=== PATIENT | male | born 1965 | race Caucasian/White ===

== ENCOUNTER 2017-07-17 21:40 | Emergency (ER) | payer OTHER ==
[2017-07-17 21:54] VITALS: BP 156/95; PULSE 86; RESP 20; TEMP 97.2; O2SAT 95
[2017-07-17] MEDS ORDERED: METO50TA PO (22:51)
--- NOTE | 2017-07-17 23:25 | PD ---
HPI Chief Complaint: Dizziness Time Seen by Provider: 23:20 Travel History International Travel<30 days: No Contact w/Intl Traveler<30days: No Traveled to known affect area: No History of Present Illness HPI The patient is a 51-year-old male who for the last 3-4 hours has had vertigo, bilateral frontal/temporal headache of gradual onset, nausea. The patient states when he moves the nausea gets worse in the dizziness gets worse. He is never had this before. He does not have any focal weakness or sensory loss but may have a minimally poor control of the finger-nose test on the left side, he was performing this at home himself. PFSH Past Medical History Patient Takes Glucophage: No Hypertension: Yes Tetanus Vaccination: < 5 Years Influenza Vaccination: Yes ?: Not Past Surgical History Cholecystectomy: Yes (2017) Tonsillectomy: Yes Social History Alcohol Use: No Tobacco Use: No Substance Use: No Allergies-Medications (Allergen,Severity, Reaction): Coded Allergies: No Known Drug Allergies (Verified Allergy, Unknown, 07/17/17) Reported Meds & Prescriptions Reported Meds & Active Scripts Active K-Tab (Potassium Chloride) 20 Meq Tab 20 Meq PO DAILY Reported Metoprolol Tartrate 50 Mg Tab 50 Mg PO DAILY Review of Systems Except as stated in HPI: all other systems reviewed are Neg Physical Exam Narrative GENERAL: The patient is alert, anxious, oriented 3 in minimal apparent distress with his vertigo. His vital signs show blood pressure 156/95 but otherwise normal. SKIN: Focused skin assessment warm/dry. HEAD: Atraumatic. Normocephalic. EYES: Pupils equal and round. No scleral icterus. No injection or drainage. ENT: No nasal bleeding or discharge. Mucous membranes pink and moist. NECK: Trachea midline. No JVD. CARDIOVASCULAR: Regular rate and rhythm. No murmur appreciated. RESPIRATORY: No accessory muscle use. Clear to auscultation. Breath sounds equal bilaterally. GASTROINTESTINAL: Abdomen soft, non-tender, nondistended. Hepatic and splenic margins not palpable. MUSCULOSKELETAL: No obvious deformities. No clubbing. No cyanosis. No edema. NEUROLOGICAL: Awake and alert. No obvious cranial nerve deficits. Motor grossly within normal limits. Normal speech. Finger to nose test is minimally more difficult on the left side than it is on the right side for this patient. PSYCHIATRIC: Appropriate mood and affect; insight and judgment normal. Data Data Last Documented VS Vital Signs Date Time Temp Pulse Resp B/P (MAP) Pulse Ox O2 Delivery O2 Flow Rate FiO2 07/18/17 01:19 98.4 74 15 159/98 (118) 98 07/17/17 23:34 Room Air Orders Orders Ondansetron Inj (Zofran Inj) (07/17/17 23:30) Sodium Chlor 0.9% 1000 Ml Inj (Ns 1000 M (07/17/17 23:30) Cbc No Diff, Includes Plts (07/17/17 23:24) Comprehensive Metabolic Panel (07/17/17 23:24) Ct Brain W/O Iv Contrast(Rout) (07/17/17 23:24) Meclizine (Antivert) (07/17/17 23:45) Potassium Chloride (Kcl) (07/18/17 01:15) Ed Discharge Order (07/18/17 01:15) Labs Laboratory Tests Test 07/17/17 23:25 White Blood Count 10.5 TH/MM3 Red Blood Count 5.48 MIL/MM3 Hemoglobin 15.5 GM/DL Hematocrit 46.2 % Mean Corpuscular Volume 84.3 FL Mean Corpuscular Hemoglobin 28.3 PG Mean Corpuscular Hemoglobin Concent 33.5 % Red Cell Distribution Width 12.9 % Platelet Count 251 TH/MM3 Mean Platelet Volume 7.7 FL Blood Urea Nitrogen 20 MG/DL Creatinine 1.40 MG/DL Random Glucose 173 MG/DL Total Protein 7.2 GM/DL Albumin 3.7 GM/DL Calcium Level 8.9 MG/DL Alkaline Phosphatase 86 U/L Aspartate Amino Transf (AST/SGOT) 18 U/L Alanine Aminotransferase (ALT/SGPT) 25 U/L Total Bilirubin 0.7 MG/DL Sodium Level 138 MEQ/L Potassium Level 2.5 MEQ/L Chloride Level 99 MEQ/L Carbon Dioxide Level 27.4 MEQ/L Anion Gap 12 MEQ/L Estimat Glomerular Filtration Rate 53 ML/MIN MDM Medical Decision Making Medical Screen Exam Complete: Yes Emergency Medical Condition: Yes Medical Record Reviewed: Yes Interpretation(s) The CBC is normal. The complete metabolic profile shows potassium of 2.5, BUN 20, creatinine 1.4, glucose 173 and GFR of 53. The complete metabolic profile is otherwise normal. The CT brain is unremarkable. Differential Diagnosis Ischemic CVA, intracranial bleed, brain tumor-unlikely, electrolyte disorder, hypo-/hyperglycemia, vertigo Narrative Course The patient has a hypokalemia and appears dehydrated. He was told that he is too sick to go home, that he could fall and hurt himself and that we need to recheck the potassium and make sure he can ambulate without risk to himself. We offered him 23 hour observation. He declined and will sign out AMA. He understood the risks of going home. The patient was also told that we would observe for stroke symptoms and we cannot do that at home. We also wanted to work up for stroke. Diagnosis Primary Impression: Vertigo Additional Impressions: Hypokalemia due to loss of potassium Intractable vomiting with nausea Scripts Potassium Chloride ER (K-Tab) 20 Meq Tab 20 MEQ PO DAILY for Electrolyte Replacement, #30 TAB 0 Refills Prov: Jaya Upton MD 07/18/17 Disposition: 07 AGAINST MEDICAL ADVICE Condition: Stable Jaya Upton MD Jul 17, 2017 23:25
[2017-07-17] MEDS ORDERED: ONDANSETRON HCL 4 MG/2 ML VIAL IV ONE (23:30)
[2017-07-17] MEDS ORDERED: SODIUM CHLOR 0.9% 1000 ML INJ 1,000 ML IV SCH (23:30)
[2017-07-17 23:34] VITALS: BP 137/77; PULSE 77; RESP 15; TEMP 98.5; O2SAT 94
[2017-07-17 23:41] LABS: HEMATOCRIT 46.2 % (39.0-51.0); HEMOGLOBIN 15.5 GM/DL (13.0-17.0); MEAN CELL VOLUME 84.3 FL (80.0-100.0); MEAN CORPUSCULAR HEMOGLOBIN 28.3 PG (27.0-34.0); MEAN CORPUSCULAR HGB CONC 33.5 % (32.0-36.0); MEAN PLATELET VOLUME 7.7 FL (7.0-11.0); PLATELET COUNT 251 TH/MM3 (150-450); RED BLOOD COUNT 5.48 MIL/MM3 (4.50-5.90); RED CELL DISTRIBUTION WIDTH 12.9 % (11.6-17.2); WHITE BLOOD COUNT 10.5 TH/MM3 (4.0-11.0)
[2017-07-17] MEDS ORDERED: MECLIZINE HCL 25 MG TAB PO ONE (23:45)
--- NOTE | 2017-07-18 00:04 | RADRPT ---
EXAM DATE/TIME: 07/17/2017 23:47 [facility] COMPARISON: No previous studies available for comparison. INDICATIONS : Cephalgia. Vertigo. RADIATION DOSE: 56.50 CTDIvol (mGy) MEDICAL HISTORY : None SURGICAL HISTORY : None. ENCOUNTER: Initial ACUITY: 1 day PAIN SCALE: 6/10 LOCATION: Bilateral frontal TECHNIQUE: Multiple contiguous axial images were obtained of the head. Using automated exposure control and adj ustment of the mA and/or kV according to patient size, radiation dose was kept as low as reasonably a chievable to obtain optimal diagnostic quality images. DICOM format image data is available electro nically for review and comparison. FINDINGS: There is no evidence for intracranial hemorrhage, mass effect, mass lesions, edema, or extra-axial fl uid collections. The visualized bony structures appear intact. The ventricles are normal size for t he patient's age. There are no signs of acute infarction for technique. CONCLUSION: Unremarkable study. Yuni Brown MD on July 18, 2017 at 0:02 Board Certified Radiologist. This report was verified electronically.
[2017-07-18 00:59] LABS: ALBUMIN 3.7 GM/DL (3.4-5.0); ALKALINE PHOSPHATASE 86 U/L (45-117); ALT (GPT) 25 U/L (12-78); AST (GOT) 18 U/L (15-37); BICARBONATE 27.4 MEQ/L (21.0-32.0); BLOOD UREA NITROGEN 20 MG/DL (7-18); CALCIUM 8.9 MG/DL (8.5-10.1); CHLORIDE 99 MEQ/L (98-107); GLOMERULAR FILTRATION RATE 53 ML/MIN (>89); GLUCOSE,RANDOM 173 MG/DL (74-106); SODIUM (NA) 138 MEQ/L (136-145); TOTAL BILIRUBIN ADULT 0.7 MG/DL (0.2-1.0); TOTAL PROTEIN 7.2 GM/DL (6.4-8.2)
[2017-07-18] MEDS ORDERED: POTASSIUM CHLORIDE 20 MEQ CONTROLLED RELEASE TAB PO ONE (01:15)
[2017-07-18] MEDS ORDERED: POTA1TAB4 PO (01:17)
[2017-07-18 01:19] VITALS: BP 159/98; TEMP 98.4
--- NOTE | 2017-07-18 17:08 | EKG ---
Date Performed: 07/17/2017 Time Performed: 22:09:00 PTAGE: 51 years EKG: Sinus rhythm POSSIBLE LEFT ATRIAL ENLARGEMENT BORDERLINE ECG NO PREVIOUS TRACING DOCTOR: Johanna Hill Interpretating Date/Time 07/18/2017 17:08:28
== END 2017-07-18 01:38 | disposition left against medical advice (07) ==
LOC: PHED 21:40
DX: R42 Dizziness and giddiness (principal); E87.6 Hypokalemia; R11.2 Nausea with vomiting, unspecified; I10 Essential (primary) hypertension; R94.31 Abnormal electrocardiogram [ECG] [EKG]
CPT/HCPCS: 70450; 80053; 85027; 93005; 96361; 96374; 99285; J2405; J7030